=== PATIENT | female | born 2000 | race Caucasian/White ===

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

== ENCOUNTER 2024-05-19 10:42 | Outpatient (CLI) | payer BC, SELFPAY ==
--- NOTE | ~2024-05-19 | XR_ITS ---
EXAMINATION: XR hand LT min 3V DATE: 05/19/2024 11:08 INDICATION: Left first carpometacarpal joint injury. TECHNIQUE: 3 views of left hand were obtained. COMPARISON: Left wrist radiographs 11/04/2014 FINDINGS: Alignment is normal. No fracture. Joint spaces are normal. IMPRESSION: 1. No fracture. Reviewed, dictated and finalized at location A. NATING MACHINE FEEDER IMPRESSION: 1. No fracture.
== END 2024-05-19 10:43 | disposition home or self-care (01) ==
LOC: MICIMG 10:50
PROVIDERS: PCP Family Medicine; Visit Provider Chiropractor
DX: S62.202A Unspecified fracture of first metacarpal bone, left hand, initial encounter for closed fracture (principal); X58.XXXA Exposure to other specified factors, initial encounter
CPT/HCPCS: 73130

== ENCOUNTER 2024-09-14 09:51 | Outpatient (CLI) | payer BC, SELFPAY ==
--- NOTE | ~2024-09-14 | XR_ITS ---
Right Hand Technique: PA, oblique, and lateral views were obtained. Clinical History: Pain Findings: No acute fracture or dislocation is seen. Osseous alignment is anatomic. Joint spaces are p reserved. Soft tissues are unremarkable. Impression: Unremarkable right hand. Reviewed, dictated and finalized at location M. Impression: Unremarkable right hand.
== END 2024-09-14 09:52 | disposition home or self-care (01) ==
PROVIDERS: PCP Chiropractor; Visit Provider Chiropractor
DX: M79.641 Pain in right hand (principal)
CPT/HCPCS: 73130

== ENCOUNTER 2024-12-13 12:55 | Emergency (ER) | payer BC, SELFPAY ==
--- OUTSIDE RECORDS SUMMARY | 2022-03-16 07:31 | XMS_ITS | Continuity of Care Document ---
Author Organization [employer] [place] Address [address] [place] [address] [address] [place] [address] Phone Care Team Providers Care Travel Registered Nurse Icu Name Role Phone Omar SHIN CHT, Beth Unavailable Unavailable Procedures Procedure Date Progress Note Therapeutic Activities Neuromuscular Re-Ed Therapeutic Exercise Manual Therapy Therapeutic Exercise Neuromuscular Re-Ed Therapeutic Activities Neuromuscular Re-Ed Therapeutic Activities Manual Therapy Therapeutic Exercise Therapeutic Activities Neuromuscular Re-Ed Therapeutic Exercise Manual Therapy Therapeutic Activities Neuromuscular Re-Ed Therapeutic Exercise Manual Therapy PT Evaluation Moderate Complexity Therapeutic Activities Therapeutic Exercise Therapeutic Exercise Therapeutic Activities Therapeutic Exercise Neuromuscular Re-Ed Therapeutic Exercise Neuromuscular Re-Ed Therapeutic Exercise Therapeutic Activities Neuromuscular Re-Ed Therapeutic Exercise Therapeutic Activities Neuromuscular Re-Ed Therapeutic Exercise Therapeutic Activities Neuromuscular Re-Ed Therapeutic Exercise PT Evaluation Moderate Complexity Therapeutic Activities Neuromuscular Re-Ed OT Evaluation Low Complexity Therapeutic Exercise Advance Directives Directive Yes / No Effective Date File Name No Information Encounters Encounter Description Practice Location Reason(s) For Visit Diagnoses Date Provider Providers Copied on Encounter [address], [id number], tel:[phone] Julian No Information Dec-0 2 Omar Lorenzana [address] [facility], [address], [place], [place], [facility], . tel:[phone] [address], [place], [id number], tel:[phone] Julian No Information Nov0 2 Omar Lorenzana [address] [facility], [address], [place], [place], [facility], [place]. tel:[phone] [address], [place], [place], [id number], tel:[phone] Julian No Information 2 Omar Lorenzana [address] [facility], [address], [place], [place], [facility], [place]. tel:[phone] [address], [place], [place], [id number], [place] tel:[phone] Julian No Information Sep-2 2 Omar Lorenzana [address] [facility], [address], [place], [place], [facility], . tel:[phone] [address], [place], [place], [id number], tel:[phone] Julian No Information Sep-2 2 Omar Lorenzana [address] [facility], [address], [place], [address], [place]. tel:[phone] [facility] [address], [place], [place], [id number], [place] tel:[phone] Julian No Information Sep- 2 Omar Carter. [address] [facility], [address], [place], [address], [place]. tel:[phone] [facility] [address], [place], [place], [id number], [place] tel:[phone] Julian No Information Sep- 2 Keanu Gay. . [facility] [address], [place], [place], [address], [place] tel:[phone] [place] Pain in right wristMuscle weakness (generalized)Ot h symptoms and signs involving the musculoskeletal systemOther general symptoms and signsOther enthesopathies, not elsewhere classified 8 Terry Barrera. [address] [facility], [address], [place], [place], [facility], [place]. tel:[phone] [facility] [address], [place], [place], [id number], [place] tel:[phone] [place] Pain in right wristMuscle weakness (generalized)Ot h symptoms and signs involving the musculoskeletal systemOther general symptoms and signsOther enthesopathies, not elsewhere classified 0 8 Terry Barrera. [address] [facility], [address], [place], [address], [place]. tel:[phone] [facility] [address], [place], [place], [address], [place] tel:[phone] [place] Pain in right wristMuscle weakness (generalized)Ot h symptoms and signs involving the musculoskeletal systemOther general symptoms and signsOther enthesopathies, not elsewhere classified 3 0- 8 Terry Barrera. [address] [facility], [address], [place], [address], [place]. tel:[phone] [facility], [place], [place], [id number], [place] tel:[phone] [place] Sprain of unspecified ligament of right ankle, subs encntr 8 Zepeda Sunil. , [place], [place]. [facility], [place], [place], [id number], [place] tel:[phone] [place] Pain in right wristMuscle weakness (generalized)Ot h symptoms and signs involving the musculoskeletal systemOther general symptoms and signsOther enthesopathies, not elsewhere classified 8 Terry Barrera. [address] [facility], [address], [place], [place], [facility], [place]. tel:[phone] [facility], [place], [place], [id number], [place] tel:[phone] [place] Sprain of unspecified ligament of right ankle, subs encntr 8 Zepeda Sunil. , [place], [place]. [facility], [place], [place], [id number], [place] tel:[phone] [place] Pain in right wristMuscle weakness (generalized)Ot h symptoms and signs involving the musculoskeletal systemOther general symptoms and signsOther enthesopathies, not elsewhere classified 8 Terry Barrera. [address] [facility], [address], [place], [address], [place]. tel:[phone] [facility], [place], [place], [id number], [place] tel:[phone] [place] Sprain of unspecified ligament of right ankle, subs encntr 8 Zepeda Sunil. , [place], [place]. [facility], [place], [place], [address], [place] tel:[phone] [place] Pain in right wristMuscle weakness (generalized)Ot h symptoms and signs involving the musculoskeletal systemOther general symptoms and signsOther enthesopathies, not elsewhere classified 8 Terry Barrera. [address] [facility], [address], [place], [address], [place]. tel:[phone] Family History Family Member Type Diagnosis Age At Onset No Information Payers Payer name Insurance type Covered republican ID Authoriza tomeka(s) [facility] [place] [id number] Social History Type Description Quantity Date Captured Comments Sex Female Smoking Status No Information Chief Complaint And Reason For Visit No Information Reason For Referral Reason For Referral No Information History Of Present Illness Encounter Date Complaint History Of Prese nt Illness No Information Functional Status Date Functional Assessmen t No Information Instructions Date Instruction Additional Infor mation Dietary needs education Related to Overweight Prescribed activity/exercise edu cation Related to Overweight Assessments Type Assessment Date No Information Patient Care Teams Name Effective Dates (start - stop) Status Members No Information
--- OUTSIDE RECORDS SUMMARY | 2024-12-13 12:45 | XMS_ITS | Encounter Summary ---
Author Organization [facility] Healthcare Address [address] [place] [address] Care Team Providers Care Facilities Flight Check Pilot Name Role Phone Amanda Myles DO Primary Care Provider [phone] Carina Chaudhary MD Unavailable [phone] Josue Thornton DO Unavailable [phone] Silva Yao Unavailable [phone] Polina Angel NP Unavailable [phone] Reason for Visit * Reason Comments Eye Drainage L eye redness, blurr y and drainage started this AM. C/o eye hurts. Encounter Details Date Type Department Care Team (Late st Contact Info) Description 12/13/2024 12:45 PM CDT Office Visit [facility] [place] [id number] [place] [address] Teagan Otero NP [address] [facility] [address] [place] [address] Acute left eye pain (Primary Dx); Vision changes; Photophobia Social History Tobacco Use Types Packs/Day Years Used Date Smoking Tobacco: Never Smokeless Tobacco: Never Alcohol Use Standard Drinks/Week Comments Never 0 (1 standard drink = 0.6 oz pur e alcohol) PHQ-2 Answer Date Recorded PHQ-2 Total Score 0 11/02/2024 AUDIT-C Answer Date Recorded Q1: How often do you have a drink containing alcohol? Never 12/08/2024 Q2: How many drinks containi ng alcohol do you have on a typical day when you are drinking? Patient does not drink Q3: How often do you have si x or more drinks on one occasion? Never 12/08/2024 Personal Safety Answer Date Recorded Getting School Help Needed Denies 03/28 Comments No Sex and Gender Information Value Date Recorded Sex Assigned at Not on file Legal Sex Female 4:19 AM MANAGER WASTEWATER Gender Identity Female 03/25/2020 1:09 PM MANAGER WASTEWATER Sexual Orientation Straight 03/25/2020 1: 09 PM MANAGER WASTEWATER documented as of this encounter Last Filed Vital Signs Vital Sign Reading Time Taken Comments Blood Pressure 122/70 12/13/2024 12:32 PM CDT Pulse 104 12/13/2024 12:32 PM CDT Temperature 36.7 C (98.1 F) 12/13/2024 12:32 PM CDT Respiratory Rate 16 12/13/2024 12:32 PM CDT Oxygen Saturation 99% 12/13/2024 12:32 PM CDT Inhaled Oxygen Concentration - - Weight 77.1 kg (170 lb) 12/13/2024 12:32 PM CDT Height - - Body Mass Index 32.12 12/08/2024 10:01 AM CDT documented in this encounter Plan of Treatment Not on file documented as of this encounter Goals Goal Patient Goal Type Associated Problems Recent Progress Patient-Stated? Author CCM Chronic Pain Care Plan Chronic Care Management No Rosmery Vigil, RN Note: Problem: Chronic Pain Goals: 1. Minimize further functional decline 2. Maximize quality of life 3. Control pain Strategies: - Activity/exercise program recommendation - Conservative stepwise pain medicine strategy with multi-disciplinary approach - Recommend healthy lifestyle strategies and compensatory methods as needed documented as of this encounter Visit Diagnoses Diagnosis Acute left eye pain- Primary Vision changes Photophobia Visual discomfort documented in this encounter Care Teams Facilities Flight Check Pilot Relationship Specialty Start Date End Date Amanda Myles DO [address] [facility] [place] [address] PCP - General Family Medicine 11/16/19 Carina Chaudhary MD [address] [facility] [address] [place] [address] Surgeon Orthopedic Surgery 02/17/20 Josue Thornton DO [address] [place] [address] Referring Physician Internal Medicine 10/31/20 Silva Yao PA [address] [place] [address] Physician Customer Equipment Engineer Orthopedic Surgery 10/31/20 Polina Angel, JUNIOR [address] [facility] [address] HETAL Jackson [address] [address] Nurse Practitioner Obstetrics and Gynecology 09/03/22 documented as of this encounter"
--- OUTSIDE RECORDS SUMMARY | 2024-12-13 12:45 | XMS_ITS | Encounter Summary ---
Author Organization [facility] Healthcare Address [address] [place] [id number] Care Team Providers Care Tabulating Machine Mechanic Name Role Phone Amanda Myles DO Primary Care Provider + [phone] Carina Chaudhary MD Unavailable [phone] Josue Thornton DO Unavailable [phone] Silva Yao Unavailable [phone] Polina Angel NP Unavailable [phone] Reason for Visit * Reason Comments Eye Drainage L eye redness, blurr y and drainage started this AM. C/o eye hurts. Encounter Details Date Type Department Care Team (Late st Contact Info) Description 12/13/2024 12:45 PM CDT Office Visit [facility] [place] [id number] [place] [address] Teagan Otero NP [address] [facility] [address] [place] [address] Acute left eye pain (Primary [...] on file Legal Sex Female 4:19 AM PASTRY MIXER Gender Identity Female 03/25/2020 1:09 PM PASTRY MIXER Sexual Orientation Straight 03/25/2020 1: 09 PM PASTRY MIXER documented as of this encounter Last Filed [...] discomfort documented in this encounter Care Teams Tabulating Machine Mechanic Relationship Specialty Start Date End Date Amanda Myles DO [address] [facility] [place] [address] PCP - General Family Medicine 11/16/19 Carina Chaudhary MD [address] [facility] [address] [place] [address] Surgeon Orthopedic Surgery 02/17/20 Josue Thornton DO [address] [place] [address] Referring Physician Internal Medicine 10/31/20 Silva Yao PA [address] [place] [address] Physician Rock Wool Insulator Orthopedic Surgery 10/31/20 Polina Angel, JUNIOR [address] [facility] [address] [place] [address] [address] Nurse Practitioner Obstetrics and Gynecology 09/03/22 documented as of this encounter
--- OUTSIDE RECORDS SUMMARY | 2024-12-13 12:57 | XMS_ITS | Clinical Summary ---
Author Organization [facility] [employer] Address [address] [place] [address] Care Team Providers Care American Sign Language Interpreter Name Role Phone Amanda Myles DO Primary Care Provider [phone] Source Comments [facility],non-owned Affiliates and Associated Physician Practices is amultiple site organization consisting of ambulatory clinics and hospital sitesin [place], [place], [place] and [place]. This disclosure is being madepursuant to the Care Everywhere program and may not contain all information available regarding this patient. Last updated 18.[facility] [employer] Allergies Active Allergy Reactions Criticality Noted Date Comments Doxycycline Vomiting 12/05/2021 Medications * Be aware that medications may not be up to date on this document. Alwaysverify current medications with the patient. HYDROcodone-acet aminophen ([place]) 5-325 MG tablet Take 1 (one) tablet by mouth every 6 hours as needed for Pain 8 tablet 12/05/2021 Active Social History Tobacco Use Types Packs/Day Years Used Date Smoking Tobacco: Never Assessed AUDIT-C Answer Date Recorded Q1: How often do you have a drink containing alcohol? Never 12/05/2021 Q2: How many drinks containi ng alcohol do you have on a typical day when you are drinking? Patient does not drink Q3: How often do you have si x or more drinks on one occasion? 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 Gender Identity Not on file Sexual Orientation Not on file Last Filed Vital Signs Vital Sign Reading Time Taken Comments Blood Pressure 119/78 12/05/2021 5:52 PM CDT Pulse 99 12/05/2021 5:52 PM CDT Temperature 37.2 C (98.9 F) 12/05/2021 5:52 PM CDT Respiratory Rate 18 12/05/2021 5:52 PM CDT Oxygen Saturation 98% 12/05/2021 5:52 PM CDT Inhaled Oxygen Concentration - - Weight 68 kg (150 lb) 12/05/2021 5:52 PM CDT Height 154.9 cm (5' 1) 12/05/2021 5:52 PM CDT Body Mass Index 28.34 12/05/2021 5:52 PM CDT Plan of Treatment Health Maintenance Due Date Last Done Comments HIV SCREENING 2017 HPV VACCINE (1 - 3-dose series) 2017 CHLAMYDIA/GONORRHEA SCREENING 2018 MENINGOCOCCAL (Group B) VACCINE SHARED DECISION-MAKING (1 of 2 - Standard) 2018 HEPATITIS C SCREENING 08/05/2020 DTAP/TDAP/TD VACCINES (1 - Tdap) 2021 HEPATITIS B VACCINE (1 of 3 - 19+ 3-dose series) 2021 COVID-19 VACCINE (4 - season) 2023 03/30/2021, 07/18/2020, 06/27/2020 DEPRESSION SCREENING 04/15/2024 INFLUENZA VACCINE (#1) 2024 , 03/28/2021, 02/17/2020, Additional history exists ZOSTER VACCINE (1 of 2) 2052 HIB VACCINE Aged Out No longer eligi ble based on patient's age to complete this topic MENINGOCOCCAL GROUPS A/C/Y/W VACCINE Aged Out No longer eligible based on patient's age to complete this topic PNEUMOCOCCAL VACCINE Aged Out No long er eligible based on patient's age to complete this topic Insurance [employer]AT LIABILITY Democrat Liability ANTHEM Care Teams American Sign Language Interpreter Relationship Specialty Start Date End Date Amanda Myles DO [address] [place] [address] [address] [place] [address] PCP - General Family Medicine 12/05/21
--- OUTSIDE RECORDS SUMMARY | 2024-12-13 12:57 | XMS_ITS | Clinical Summary ---
Author Organization [address] [facility] Address [address] [place] [address] Care Team Providers Care Medical Coding Technician Name Role Phone Shar Amanda Mcqueen DO Primary Care Provider [phone] Carina Chaudhary MD Unavailable Josue Thornton DO Unavailable Silva Yao Unavailable [phone] Polina Angel NP Unavailable [phone] Allergies Active Allergy Reactions Criticality Noted Date Comments Adhesive Rash High 02/17/2020 Doxycycline Nausea & Vomiting Low 03/10/2021 Medications etonogestreL (NEXPLANON) 68 mg implantIndicatio ns: Contraception 1 each (68 mg total) Paid by Insurance Lot # [id number] Exp. Date 03-02-23 Inserted 04-12-21 Active cetirizine (ZyrTEC) 10 mg tabletIndication s:Non-seasonal allergic rhinitis, unspecified trigger Take 1 tablet (10 mg total) by mouth daily as needed for allergies 90 tablet 1 025 2025 Active escitalopram (LEXAPRO) 20 mg tabletIndication s:Generalized Anxiety Disorder Take 1 tablet (20 mg total) by mouth daily 90 tablet 1 05/152025 Active fluticasone propionate (FLONASE) 50 mcg/actuation nasal sprayIndications :Non-seasonal allergic rhinitis, unspecified trigger Administer 2 sprays into each nostril daily 1 each 1 Active zolpidem (AMBIEN) 5 mg tabletIndication s:Sleep-Onset Insomnia Take 1 tablet (5 mg total) by mouth nightly as needed for sleep 30 tablet 5 2025 Active thyroid (RN BIRTHING Thyroid) 90 mg tabletIndication s:Max's thyroiditis Take 1 tablet (90 mg total) by mouth daily before breakfast 90 tablet 1 2025 Active moxifloxacin (VIGAMOX) 0.5 % ophthalmic solution INSTILL 1 DROP INTO RIGHT EYE TWICE DAILY Active hydrocortisone (ANUSOL-HC) 25 mg suppositoryIndic ations:Bright red rectal bleeding Insert 1 suppository (25 mg total) into the rectum 2 (two) times a day as needed for hemorrhoids 12 suppository Active al & mag hydroxide simethicone-diph enhydramine-lido ashish-nystatin (MAGIC MOUTHWASH) suspension 5-8-4-1Indicatio ns:Aphthous ulcer of mouth Swish and spit 5 mL every 4 (four) hours as needed (oral thrush) 120 mL Active Additional Information Patient not taking.Reported on 12/13/2024 benzonatate (TESSALON) 200 mg capsuleIndicatio ns:Acute cough Take 1 capsule (200 mg total) by mouth 3 (three) times a day as needed for cough keep tessalon out of reach of children, especially children under the age of 10, due to possible serious risk such as if ingested by children under the age of 10. 30 capsule Active Additional Information Patient not taking.Reported on 12/13/2024 dextroamphetamin e-amphetamine XR (ADDERALL XR) 20 mg 24 hr capsuleIndicatio ns:Attention-Def icit Hyperactivity Disorder Take 1 capsule (20 mg total) by mouth every morning 30 capsule Active semaglutide (Wegovy) 0.25 mg/0.5 mL auto-injectorInd ications:Weight Loss Management for Obese Patient (BMI >= 30) Inject 0.25 mg under the skin every 7 days for 28 days 2 mL 025 2024 Active ondansetron (ZOFRAN) 4 mg tablet Take 1 tablet (4 mg total) by mouth every 8 (eight) hours as needed for nausea or vomiting 20 tablet Active dextroamphetamin e-amphetamine XR (ADDERALL XR) 20 mg 24 hr capsuleIndicatio ns:Attention-Def icit Hyperactivity Disorder Take 1 capsule (20 mg total) by mouth every morning 30 capsule 025 2024 Discontinued(R eorder) valACYclovir (VALTREX) 1 gram tablet TAKE 1 TABLET BY MOUTH THREE TIMES DAILY FOR 7 DAYS 025 2024 Discontinued amoxicillin-clav ulanate (AUGMENTIN) 875-125 mg per tabletIndication s:Acute suppurative otitis media of right ear without spontaneous rupture of tympanic membrane, recurrence not specified,Acute pansinusitis, recurrence not specified Take 1 tablet by mouth 2 (two) times a day for 7 days 14 tablet 025 2024 Active Problems Problem Noted Date Diagnosed Date Acute costochondritis 12/04/2024 Bronchitis 12/04/2024 Rib pain on right side 12/04/2024 Sensation of fullness in ear 12/04/2024 Non-seasonal allergic rhinitis 07/13/2024 Sleep disturbance 06/03/2024 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 Continue [place] thyroid. Assessment & Plan (09/28/2022 2:46 PM CDT): Diagnosed around 2018 Patient is clinically euthyroid TSH was low at 0.13 on 09/03/22 [place] thyroid was decreased from 120 to 90 mg/day Plan: Continue same dose of [place] thyroid Check TSH in 6 weeks I will adjust the dose based on lab results. Bright red rectal bleeding 03/07/2022 Overview (03/07/2022): Added automatically from request for surgery [id number] Assessment & Plan (11/09/2024 8:50 AM CDT): Suspect hemorrhoids, referred to Gastroenterology for possible screening colonoscopy. Constipation 01/17/2022 Assessment & Plan (02/13/2022 3:59 PM CDT): Strongly recommended patient try MiraLax rather than only the magnesium. Patient instructed to start her their early until it clears and then drink immediately. The MiraLax only taking up if the left to rest for a while. May also add Colace, which is also [id number]. Please follow instructions on the packaging. Keep scheduled appointment with gastroenterology. Assessment & Plan (01/18/2022 2:38 AM CDT): Ann Price is a 21 y.o. female with PMH chronic constipation, RAMBO, ADHD, Max thyroiditis, and chronic regional pain syndrome who presented with bloody stools in the setting of constipation and was admitted for cleanout. Pt has a history of chronic constipation and has rectal pain when wiping and stooling. Given bright red blood observed by pt, lower GI cause is most likely. Differential diagnosis includes: anal fissures, hemorrhoids, and diverticulosis, which are all associated with chronic constipation. Given two months of intermittent bleeding without evidence of anemia, less concern for large volume or acute bleeding. Pt has mild RLQ tenderness consistent with diverticulitis or increased stool burden. Less concern for acute causes such as appendicitis. Overall, pt is stable without evidence of anemia. She was admitted for bowel clean-out and can follow-up outpatient with GI for colonoscopy if she continues to have bloody stools. Plan: - Miralax q2h PO - Clear liquid diet - KUB when clear - GI consult - D5NS KCl - Zofran PRN - Education on diet, exercise, chronic constipation - Discharge with bowel regimen of daily Miralax and Senna (or per GI recs) Generalized anxiety disorder 09/05/2021 Assessment & Plan (12/19/2023 9:29 AM CDT): Clinically improved, continue current prescription medications. Assessment & Plan (03/29/2023 12:34 PM SPECIAL SYSTEMS TECHNICIAN): Clinically improved, continue current prescription medications, escitalopram. Assessment & Plan (09/03/2022 3:54 PM CDT): Clinically improved, continue current prescription medications, Lexapro. Assessment & Plan (03/31/2022 10:00 PM SPECIAL SYSTEMS TECHNICIAN): Stable. Cont. Current prescription medications. Assessment & Plan (09/05/2021 11:11 AM CDT): New start on Lexapro. Referred to psychiatry for further evaluation and management. Attention deficit hyperactivity disorder (ADHD) 10/31/2020 Assessment & Plan (11/09/2024 8:49 AM CDT): Stable. Cont. Current prescription medications, Adderall XR. Assessment & Plan (04/13/2024 11:15 AM SPECIAL SYSTEMS TECHNICIAN): Clinically improved, decreased Adderall 10 mg b.i.d. down to 10 mg daily. Assessment & Plan (12/19/2023 9:29 AM CDT): Stable. Cont. Current prescription medications. Assessment & Plan (03/29/2023 12:34 PM SPECIAL SYSTEMS TECHNICIAN): Stable. Cont. Current prescription medications, Adderall. Assessment & Plan (09/03/2022 3:54 PM CDT): Stable. Cont. Current prescription medications, Adderall. Assessment & Plan (03/31/2022 10:00 PM SPECIAL SYSTEMS TECHNICIAN): Increase Adderall XR 15 mg every day to adderall 10 mg bid. Will follow. Assessment & Plan (10/08/2021 1:25 PM CDT): Rx re-sent to new pharmacy. Notify our office if there is a problem with pick- up. Assessment & Plan (09/05/2021 11:11 AM CDT): Increased Adderall XR from 10 mg daily up to 15 mg daily. Patient has been referred to psychiatry for further evaluation and management. Assessment & Plan (06/22/2021 9:26 AM SPECIAL SYSTEMS TECHNICIAN): Clinically improved, continue current prescription medications. Assessment & Plan (04/04/2021 4:30 PM SPECIAL SYSTEMS TECHNICIAN): Worsening. Increase Adderall XR 5 mg once daily up to 10 mg once daily. Will follow. Assessment & Plan (10/31/2020 8:26 AM CDT): Stable. Cont. Current meds. Chronic pain of right ankle 10/31/2020 Simple renal cyst 04/04/2020 Class 1 obesity without seri ous comorbidity with body mass index (BMI) of 33.0 to 33.9 in adult 02/17/2020 Assessment & Plan (12/08/2024 10:25 AM CDT): Chronic. Uncontrolled. Goal: 125lb Recommend Nutritional every other Saturday Seminar. Recommended Medication : Start Wegovy. If wegovy not covered, start phentermine 15mg at low dosage. Assessment & Plan (11/09/2024 8:49 AM CDT): Patient is struggling with her weight, she would like a referral to weight management. Referral placed. Nonintractable episodic headache 02/17/2020 Chronic nausea 02/17/2020 Assessment & Plan (11/09/2024 8:52 AM CDT): Referred to Gastroenterology for further evaluation and management and possible EGD. Assessment & Plan (02/17/2020 12:15 PM SPECIAL SYSTEMS TECHNICIAN): Encouraged patient to use MiraLax on a consistent basis to help have normal bowel movements. Her constipation may be contributing to her nausea prescription given will follow. Intracranial hemorrhage foll owing injury without open intracranial wound and with concussion, without LOC, subsequent encounter 07/27/2016 Arachnoid cyst 05/21/2016 Resolved Problems Problem Noted Date Diagnosed Date Resolved Date Cellulitis of left lower extremity 01/23/2024 07/13/2024 Assessment & Plan (01/23/2024 8:32 AM CDT): Trial of oral antibiotics. Notify our office of no improvement. Seasonal allergic rhinitis due to pollen 09/13/2023 08/28/2024 Assessment & Plan (09/13/2023 11:54 AM CDT): Flonase 2 sprays into each nostril while looking down over the sink, do not sniff in or blow nose after use for at least 30 minutes daily Max's thyroiditis 09/03/2022 05/0 10/2024 Assessment & Plan (12/19/2023 9:29 AM CDT): Asymptomatic. Stable. Continue current prescription medications. Assessment & Plan (09/03/2022 4:00 PM CDT): Asymptomatic. Stable. Continue current prescription medications, RN BIRTHING Thyroid. Referred to Endocrinology for further eval/mgmt. Rash 09/03/2022 03/29/2023 Assessment & Plan (09/03/2022 4:00 PM CDT): Referred to dermatology for further eval/mgmt. Abdominal pain, generalized 03/07/2022 09/03/2022 Overview (03/07/2022): Added automatically from request for surgery [id number] Inversion sprain of right ankle 06/20/2020 10/31/2020 Assessment & Plan (06/20/2020 9:32 AM SPECIAL SYSTEMS TECHNICIAN): Managed by Orthopedics. In right ankle boot. Has upcoming appointment with neurology for an apparent footdrop of the right foot. Abdominal bloating 03/25/2020 Flu vaccine need 02/17/2020 06/20/2020 Abnormal weight gain 02/17/2020 03 021 Assessment & Plan (02/17/2020 12:16 PM SPECIAL SYSTEMS TECHNICIAN): Chronic constipation and use of control may be contributing. Continue to modify diet and participate in daily exercise. Abdominal pain, generalized 02/17/2020 06/20/2020 Assessment & Plan (02/17/2020 12:15 PM SPECIAL SYSTEMS TECHNICIAN): Chronic, most likely secondary to constipation. However patient also has problems with her menstrual period. She has been tried on oral contraceptive pills in the past, however did not work for her due to forgetfulness of bowel when she needed to take her pill. She currently has next planning on. Will refer her to gynecology for further evaluation of her abnormal periods. Abnormal menses 02/17/2020 06/20/2020 Assessment & Plan (02/17/2020 12:16 PM SPECIAL SYSTEMS TECHNICIAN): Referred to employee relations manager for further evaluation and management. Constipation 02/17/2020 06/20/2020 Assessment & Plan (02/17/2020 12:16 PM SPECIAL SYSTEMS TECHNICIAN): Trial of MiraLax. If no improvement consider referral to farmworkers. Encounters Date Type Department Care Team Description 12/13/2024 12:45 PM CDT Office Visit [facility] Care at [address] [phone] Teagan Otero NP Acute left eye pain (Primary Dx); Vision changes; Photophobia 12/08/2024 10:00 AM CDT Office Visit [facility] at [address] [phone] Acosta Guthrie MD Class 1 obesity due to excess calories without serious comorbidity with body mass index (BMI) of 33.0 to 33.9 in adult (Primary Dx) 12/08/2024 Telephone [facility] at [address] [phone] Acosta uGthrie MD PA for wegovy 12/04/2024 10:15 AM CDT Office Visit [facility] Care at [address] [phone] Modesta Zaidi, JUNIOR Non-recurrent acute serous otitis media of right ear (Primary Dx); Episodic cluster headache, not intractable 11/25/2024 9:00 AM CDT Office Visit [facility] Care at [address] [phone] Audrey Stokes, JUNIOR Acute suppurative otitis media of right ear without spontaneous rupture of tympanic membrane, recurrence not specified (Primary Dx); Acute pansinusitis, recurrence not specified; Acute cough 11/24/2024 Results Follow-Up [facility] at [facility] [address] [facility] [address] [place] [address] Amanda Myles DO Throat culture Throat 11/23/2024 4:33 PM CDT - 11/23/2024 11:59 PM CDT Hospital Encounter [facility] [address] [place] [address] Sore throat Discharge Disposition: Discharge to home or self care 11/23/2024 2:30 PM CDT Office Visit [facility] at [facility] [address] [facility] [address] [place] [address] Amanda Myles DO Acute cough (Primary Dx); Sore throat; Aphthous ulcer of mouth; Non-seasonal allergic rhinitis, unspecified trigger 11/04/2024 Telephone [facility] at [place] [address] [facility] [address] [place] [address] Acosta Guthrie MD 11/02/2024 3:45 PM CDT Office Visit [facility] at [facility] [address] [facility] [address] [place] [address] Amanda Myles DO Attention deficit hyperactivity disorder (ADHD), unspecified ADHD type (Primary Dx); Chronic nausea; Bright red rectal bleeding; Class 1 obesity due to excess calories without serious comorbidity with body mass index (BMI) of 32.0 to 32.9 in adult 09/14/2024 11:30 AM CDT Office Visit [facility] at [address] [phone] Modesta Zaidi, JUNIOR Hand injury, right, initial encounter (Primary Dx) from Last 3 Months Immunizations Immunization Administration Dates Next Due DTP 11/18/2018 DTaP 08/07/2013, 4,03/02/2003,12/17 DTaP / IPV 2002 DTaP 5 Pertussis 08/07/2013, 4,02/21/2003,12/17,2002 HPV, Quadrivalent 11/18/2017 HPV, Unspecified 11/18/2017,01/10/2016, 6 HPV9 11/21/2015 Hep B, Unspecified 2002,2002, 003 HiB 08/16/2003, 3,2002,08/10 Hib (PRP-OMP) 2002 IPV 11/18/2017, 4,2002,10/22 Influenza, Quadrivalent, Stacy l Culture-based MDCK, Antibiotic Free, Intramuscular 02/24/2018 Influenza, Quadrivalent, Rec ombinant, Egg Free, Preservative Free, Intramuscular 03/30/2021 Influenza, Quadrivalent, Spl it, Preservative Free, Intramuscular 03/29/2023,01/18/2022,02/17/2020 Influenza, Trivalent, IM (MDV) 02/24/2018 Influenza, Trivalent, Preser vative Free, Intramuscular 04/16/2024 Influenza, Unspecified 04/13/2024(Deferr ed: Patient Refused),01/13/2023,03/30/2022(Deferre d: Patient Refused),03/28/2021,03/28/2021, 020 MMR 08/14/2007,11/19/2003 Meningococcal ACWY, Unspecified 10/26/2019,08/07 Meningococcal MCV4P (Menactra) 08/07/2013 Meningococcal Polysaccharide (Menomune) 08/07/2013 Pfizer SARS-CoV-2 Monovalent Vaccination (12+ Yrs) PURPLE 03/30/2021,07/18/2020,06/27/2020 Tdap 11/18/2017,06/25/2013,2002 Varicella 10/25/2013,08/16/2003 Surgical History Surgery Date Site/Laterality Comments TONSILLECTOMY WISDOM TOOTH EXTRACTION Medical History Medical History Date Comments Hx of tonsillectomy ADHD (attention deficit hyperactivity disorder) Menstrual problem Joint pain Max's thyroiditis CRPS (complex regional pain syndrome type I) Leg pain Ankle pain Anxiety Headache CRPS (complex regional pain syndrome type I) Ovarian cyst Kidney cysts Subarachnoid cyst Family History Medical History Relation Name Comments Heart attack Father's Brother kajal at age 49 Hypertension Maternal Grandfather jason Hypertension Maternal Grandmother shelva Lupus Maternal Grandmother shelva Stroke Maternal Grandmother shelva Thyroid disease Maternal Grandmother shelva Max's thyroiditis Mother Psoriasis Mother Arthritis Other 1 Family history of Arthritis; Cancer Other 2 Family history of Cancer, unknown; Heart disease Other 3 Family history of Heart disease; Mental illness Other 4 Family histor y of Mental illness; Hypertension Other 5 Family history of Hypertension; Stroke Other 6 Family history of Stroke; Anxiety disorder Sister lalo Asthma Sister lalo Depression Sister lalo Relation Name Status Comments Father's Brother kajal Maternal Grandfather jason Maternal Grandmother shelva Mother Other 1 Other 2 Other 3 Other 4 Other 5 Other 6 Sister lalo Social History Tobacco Use Types Packs/Day Years [...] on file Legal Sex Female 4:19 AM SPECIAL SYSTEMS TECHNICIAN Gender Identity Female 03/25/2020 1:09 PM SPECIAL SYSTEMS TECHNICIAN Sexual Orientation Straight 03/25/2020 1: 09 PM SPECIAL SYSTEMS TECHNICIAN Obstetrics History Para Term AB IAB SAB Ectopic Multiple Livin g Live Births 0 0 0 0 0 0 0 0 0 0 0 Last Filed Vital Signs Vital Sign Reading Time Taken Comments Blood Pressure 122/70 12/13/2024 12:32 PM CDT Pulse 104 12/13/2024 12:32 PM CDT Temperature 36.7 C (98.1 F) 12/13/2024 12:32 PM CDT Respiratory Rate 16 12/13/2024 12:32 PM CDT Oxygen Saturation 99% 12/13/2024 12:32 PM CDT Inhaled Oxygen Concentration - - Weight 77.1 kg (170 lb) 12/13/2024 12:32 PM CDT Height 154.9 cm (5' 1) 12/08/2024 10:01 AM CDT Body Mass Index 32.12 12/08/2024 10:01 AM CDT Plan of Treatment Health Maintenance Due Date Last Done Comments Chlamydia and Gonorrhea (GC/CT) Screening 11/03/2022 11/03/2021, 11/03/2021, 11/03/2021, Additional history exists Influenza Vaccine (#1) 2024 , 03/29/2023, 01/13/2023, Additional history exists Cervical Cancer Screening 01/22/2025 Po stponed from 2002 (Patient declined, but will receive in the future) Regular Well Visit/Exam 18-64 04/13/2025 04/13/2024, 06/22/2021 Pneumococcal vaccine <65 (1 of 2 - PCV) 09/27/2025 Postponed from 2021 (Patient declined, but will receive in the future) Depression Screening 11/02/2025 11/02/2024, 12/19/2023, 03/29/2023, Additional history exists DTaP/Tdap/Td Vaccine (10 - Td or Tdap) 11/18/2028 11/18/2018, 11/18/2017, 08/07/2013, Additional history exists Varicella Vaccines Completed 10/25/2013, 08/16/2003 HPV Vaccines Completed 11/18/2017, 0809/2017, 01/10/2016, Additional history exists Covid-19 Vaccine Discontinued 03/30/2021, 08/2020, 06/27/2020 Hepatitis B Screening Completed 04/13/2024 , 2002, 2002, Additional history exists Hepatitis C Screening Completed 04/13/2024 Meningococcal B Vaccine Discontinued Goals Goal Patient Goal Type Associated Problems [...] lifestyle strategies and compensatory methods as needed Procedures Procedure Name Priority Date/Time Associated Diagnosis Comments POC INFLUENZA A/B, COVID-19 ANTIGEN Routine 11/23/2024 2:46 PM CDT Acute cough Sore throat POCT RAPID STREP Routine 11/23/2024 2:39 PM CDT Acute cough Sore throat THROAT CULTURE Routine 11/23/2024 2:39 PM CDT Sore throat HEPATITIS C ANTIBODY Routine 04/13/2024 11:13 AM SPECIAL SYSTEMS TECHNICIAN Need for hepatitis C screening test HM CHLAMYDIA AND GONORRHEA Routine 11/03/2021 from Last 3 Months or Most Recently Relevant to Health Maintenance Results * POC Influenza A/B, COVID-19 antigen (11/23/2024 2:46 PM CDT) Influenza A Ag, POC Negative Negative [facility] Influenza B Ag, POC Negative Negative [facility] COVID-19 Ag POC Presumptive Negative Presumptive Negative, Invalid [facility] Nasal 11/23/2024 2:46 PM CDT Amanda Myles DO POINT OF CARE TEST ORDERAB LES Final Result [facility] [id number] [facility] [address] [place] [address] * POCT rapid strep A (11/23/2024 2:39 PM CDT) [facility] Rapid Strep A, POC Negative Negative Swab 11/23/2024 2:39 PM CDT us Amanda Myles DO POINT OF CARE TEST ORDERAB LES Final Result * Throat culture Throat (11/23/2024 2:39 PM CDT) Pathologist [facility] Report Final Report: No growth of pathogens. Comment:Testing performed by : [facility], [address] [facility] [place] [address] Throat 11/23/2024 2:39 PM CDT 11/23/2024 8:31 PM CDT Narrative BECCA - 11/24/2024 4:02 PM CDT Testing performed by [facility] Microbiology Laboratory ([phone]). us Amanda Myles DO LAB MICROBIOLOGY - GENERAL ORDERABLES Final Result Performing Organization Address City/[facility] Co de Phone Number BECCA [address] [facility] Department [place] [address] * Hepatitis C antibody Blood (04/13/2024 11:13 AM SPECIAL SYSTEMS TECHNICIAN) [facility] Hep C Ab Nonreactive Nonreactive Comment: Antibodies to HCV not detected. Does NOT exclude the possibility of recent exposure to HCV. Current interpretive data was last revised on 21 Interpretive Data Nonreactive: Antibodies to HCV not detected. Does NOT exclude the possibility of recent exposure to HCV. Equivocal: Equivocal for HCV antibodies. Supplemental molecular testing will be automatically performed to determine infection status in accordance with current CDC screening recommendations. Reactive: Positive for HCV antibodies. This may represent current or past HCV infection. Supplemental molecular testing will be automatically performed to determine current infection status in accordance with current CDC screening recommendations. Interpretive data was last revised on 2019. Blood 04/13/2024 11:1 3 AM SPECIAL SYSTEMS TECHNICIAN 04/13/2024 11:35 AM SPECIAL SYSTEMS TECHNICIAN Amanda Myles DO LAB MICROBIOLOGY - GENERAL ORDERABLES Final Result [facility] [address] [facility] Department [place] [address] * CHLAMYDIA AND GONORRHEA (11/03/2021) SCRIBED GC/Chlamydia Urine Normal Historical Provider MD HEALTH MAINTENANCE Final Result from Last 3 Months or Most Recently Relevant to Health Maintenance Insurance [employer] Member Subscriber Plan / Payer (Ef fective 2018-Present) Name:Ann Price Kristel Relation to Subscriber:Child Name:JULIETA PRICE Date of :1967 (Home) Address: [address] [place] [phone] Payer ID:[id number] (NAIC) Type:[facility] Address: [address] ACCESS SPECIAL CONTRACTS PAYOR RAJ WIGGINS [id number] ANTHEM ACCESS Advance Directives For more information, please contact: [phone] Documents on File Type Date Recorded Patient Guide Cruise Expl anation Advance Directives and Livin g Will 03/19/2022 1:14 PM * Full Code (Latest Code Status on File) Date Activated Date Inactivated Comments 01/17/2022 11:29 PM 01/18/2022 5:46 PM Care Teams Medical Coding Technician Relationship Specialty Start Date End Date Eva Mylese DO [place] [address] [place] [address] PCP - General Family Medicine 11/16/19 Carina Chaudhary MD [address] [place] [address] Surgeon Orthopedic Surgery 02/17/20 Josue Thornton DO [address] [place] [address] Referring Physician Internal Medicine 10/31/20 Silva Yao PA [address] [place] [address] Physician Sales Manager Orthopedic Surgery 10/31/20 Polina Angel, RN BIRTHING [address] [place] [place] [address] [address] Nurse Practitioner Obstetrics and Gynecology 09/03/22
--- OUTSIDE RECORDS SUMMARY | 2024-12-13 12:57 | XMS_ITS | Encounter Summary ---
Author Organization [facility] Healthcare Address [address] [place] [address] Care Team Providers Care Child Welfare Worker Name Role Phone Amanda Myles DO Primary Care Provider [phone] Carina Chaudhary MD Unavailable Khurram Soria MD Unavailable [phone] Josue Thornton DO Unavailable Silva Yao Unavailable [phone] Rosemarie Cuenca MA Unavailable [phone] Polina Angel NP Unavailable [phone] Reason for Visit * Reason Onset Date Comments Med Refill 11/18/2020 Encounter Details Date Type Department Care Team (Late st Contact Info) Description 11/18/2020 Telephone [facility] [address] [facility] [address] [place] [address] Deidra Portillo MD [address] [place], [place] [id number] Med Refill Social History Tobacco Use Types Packs/Day Years Used Date Smoking Tobacco: Never Smokeless Tobacco: Never Alcohol Use Standard Drinks/Week Comments No 0 (1 standard drink = 0.6 oz pur e alcohol) AUDIT-C Answer Date Recorded Q1: How often do you have a drink containing alc ohol? Never 11/17/2020 Average Number of Drinks Not on file 021 Frequency of Binge Drinking Not on file 08/2020 PHQ-2 Answer Date Recorded PHQ-2 Total Score (If total score is 3 or more points, staff should administer the PHQ-9) 0 11/01/2020 Comments No Sex and Gender Information Value Date Recorded Sex Assigned at Not on file Legal Sex Female 4:19 AM ELIGIBILITY TECHNICIAN Gender Identity Female 03/25/2020 1:09 PM ELIGIBILITY TECHNICIAN Sexual Orientation Straight 03/25/2020 1: 09 PM ELIGIBILITY TECHNICIAN documented as of this encounter Plan of Treatment Not on [...] documented as of this encounter Visit Diagnoses Not on filedocumented in this encounter Additional Health Concerns Infection Onset Date Last Indicated Resolved Time COVID: Suspected 03/10/2021 03/10/2021 03/10/2021 9:42 AM ELIGIBILITY TECHNICIAN Influenza, adult 03/10/2021 03/10/2021 03/17/2021 3:05 AM ELIGIBILITY TECHNICIAN COVID: Suspected 10/18/2021 10/18/2021 10/18/2021 4:25 PM CDT COVID19 10/18/2021 10/18/2021 10/28/2021 3:05 AM CDT COVID: Recovered Comment:Added based on recent COVID infection. 10/28/2021 11/03/2021 02/25/2022 3:[address] COVID: Suspected 01/03/2022 01/03/2022 01/03/2022 8:41 PM CDT COVID: Suspected 05/02/2022 05/02/2022 05/02/2022 2:16 PM ELIGIBILITY TECHNICIAN Exposure, COVID-19 Comment:Added automatically based on COVID19 lab answers indicating exposure risk 06/26/2023 06/26/2023 07/06/2023 3:05 AM C DT COVID: Suspected 06/26/2023 06/26/2023 06/26/2023 8:23 PM CDT COVID: Suspected 07/17/2023 07/17/2023 07/17/2023 10:01 AM CDT COVID: Suspected 07/17/2023 07/17/2023 07/17/2023 3:31 PM CDT Exposure, COVID-19 Comment:Added automatically based on COVID19 lab answers indicating exposure risk 07/31/2023 07/31/2023 2023 3:05 AM C DT COVID: Suspected 07/31/2023 07/31/2023 07/31/2023 12:21 PM CDT COVID: Suspected 07/31/2023 07/31/2023 07/31/2023 4:06 PM CDT COVID: Suspected 04/13/2024 04/13/2024 04/14/2024 3:05 AM ELIGIBILITY TECHNICIAN COVID: Suspected 11/23/2024 11/23/2024 11/23/2024 2:47 PM CDT documented as of this encounter Care Teams Child Welfare Worker Relationship Specialty Start Date End Date Amanda Myles DO [address] [facility] [address] [place] [address] PCP - General Family Medicine 11/16/19 Carina Chaudhary MD [address] [facility] [facility] [address] [place] [address] Surgeon Orthopedic Surgery 02/17/20 Khurram Soria MD [address] [address] Referring Physician Obstetrics and Gynecology 02/17/20 09/02/22 Josue Thornton DO [address] [place] [address] Referring Physician Internal Medicine 10/31/20 Silva Yao PA [address] [place] [address] Physician Greenhouse Laborer Orthopedic Surgery 10/31/20 Rosemarie Cuenca, SHAKIRA [address] [place] [address] [address] [place] [address] ACO Care Nanosystems Engineer 05/03/22 05/06/22 Polina Angel NP [address] [facility] [address] Jackson [address] [address] Nurse Practitioner Obstetrics and Gynecology 09/03/22 documented as of this encounter
--- OUTSIDE RECORDS SUMMARY | 2024-12-13 12:57 | XMS_ITS | Encounter Summary ---
Author Organization [facility] Address [address] [place] [address] Care Team Providers Care Design Center Consultant Name Role Phone Amanda Myles DO Primary Care Provider [phone]- [phone] Carina Chaudhary MD Unavailable Khurram Soria MD Unavailable [phone] Josue Thornton DO Unavailable [phone] Silva Yao Unavailable [phone] Rosemarie Cuenca MA Unavailable [phone] Polina Angel NP Unavailable [phone] Encounter Details Date Type Department Care Team (Late st [facility]) Description 03/28/2020 Telephone [facility] [place] [facility] [address] [place] [id number] Brandie Cooper, [place]LTON Social History Tobacco Use Types Packs/Day Years Used Date Smoking Tobacco: Never Smokeless Tobacco: Never Alcohol Use Standard Drinks/Week Comments No 0 (1 standard drink = 0.6 oz pur e alcohol) PHQ-2 Answer Date Recorded PHQ-2 Total Score (If total score is 3 or more points, staff should administer the PHQ-9) 0 02/17/2020 Comments No Sex and Gender Information Value Date Recorded Sex Assigned at Not on file Legal Sex Female 4:19 AM GENERAL DOC Gender Identity Female 03/25/2020 1:09 PM GENERAL DOC Sexual Orientation Straight 03/25/2020 1: 09 PM GENERAL DOC documented as of this encounter Plan of Treatment Not on file documented as of this encounter Visit Diagnoses Not on filedocumented in this encounter Additional Health Concerns Infection Onset Date Last Indicated Resolved Time COVID: Suspected 03/10/2021 03/10/2021 03/10/2021 9:42 AM GENERAL DOC Influenza, adult 03/10/2021 03/10/2021 03/17/2021 3:05 AM GENERAL DOC COVID: Suspected 10/18/2021 10/18/2021 10/18/2021 4:25 PM CDT COVID19 10/18/2021 10/18/2021 10/28/2021 3:05 AM CDT COVID: Recovered Comment:Added based on recent COVID infection. 10/28/2021 11/03/2021 02/25/2022 3:[address] COVID: Suspected 01/03/2022 01/03/2022 01/03/2022 8:41 PM CDT COVID: Suspected 05/02/2022 05/02/2022 05/02/2022 2:16 PM GENERAL DOC Exposure, COVID-19 Comment:Added automatically based on COVID19 [...] COVID: Suspected 04/13/2024 04/13/2024 04/14/2024 3:05 AM GENERAL DOC COVID: Suspected 11/23/2024 11/23/2024 11/23/2024 2:47 PM CDT documented as of this encounter Care Teams Design Center Consultant Relationship Specialty Start Date End Date Shar Amanda McqueenDO [address] [facility] [address] [place] [address] PCP - General Family Medicine 11/16/19 Carina Chaudhary MD [address] [facility] [address] [place] [address] Surgeon Orthopedic Surgery 02/17/20 Khurram Soria MD [address] [facility] [address] [place], [place] [id number] Referring Physician Obstetrics and Gynecology 02/17/20 09/02/22 Josue Thornton DO [address] [place] [address] Referring Physician Internal Medicine 10/31/20 Silva Yao PA [address] [place] [address] Physician Rolling Mill Operator Helper Orthopedic Surgery 10/31/20 Rosemarie Cuenca MA [address] [place] [address] [address] [place] [address] ACO Care Crozer 05/03/22 05/06/22 Polina Angel, JUNIOR [address] [facility] [address] Jackson [address] [address] Nurse Practitioner Obstetrics and Gynecology 09/03/22 documented as of this encounter
--- OUTSIDE RECORDS SUMMARY | 2024-12-13 12:57 | XMS_ITS | Encounter Summary ---
Author Organization [facility] Address [address] [place] [address] Care Team Providers Care Insight Leader Name Role Phone Amanda Myles DO Primary Care Provider [phone]- [phone] Carina Chaudhary MD Unavailable Khurram Soria MD Unavailable [phone] Josue Thornton DO Unavailable Silva Yao Unavailable [phone] Rosemarie Cuenca MA Unavailable [phone] Polina Angel NP Unavailable [phone] Encounter Details Date Type Department Care Team (Late st Contact Info) Description 07/29/2020 Telephone [facility] MRI Department [address] [place] [phone] [facility], [place], [place] Social History Tobacco Use Types Packs/Day Years Used Date Smoking Tobacco: Never Smokeless Tobacco: Never Alcohol Use Standard Drinks/Week Comments No 0 (1 standard drink = 0.6 oz pur e alcohol) PHQ-2 Answer Date Recorded PHQ-2 Total Score (If total score is 3 or more points, staff should administer the PHQ-9) 0 06/20/2020 Comments No Sex and Gender Information Value Date Recorded Sex Assigned at Not on file Legal Sex Female 4:19 AM NITRIC ACID PLANT OPERATOR Gender Identity Female 03/25/2020 1:09 PM NITRIC ACID PLANT OPERATOR Sexual Orientation Straight 03/25/2020 1: 09 PM NITRIC ACID PLANT OPERATOR documented as of this encounter Plan of Treatment Not on file documented as of this encounter Visit Diagnoses Not on filedocumented in this encounter Additional Health Concerns Infection Onset Date Last Indicated Resolved Time COVID: Suspected 03/10/2021 03/10/2021 03/10/2021 9:42 AM NITRIC ACID PLANT OPERATOR Influenza, adult 03/10/2021 03/10/2021 03/17/2021 3:05 AM NITRIC ACID PLANT OPERATOR COVID: Suspected 10/18/2021 10/18/2021 10/18/2021 4:25 PM CDT COVID19 10/18/2021 10/18/2021 10/28/2021 3:05 AM CDT COVID: Recovered Comment:Added based on recent COVID infection. 10/28/2021 11/03/2021 02/25/2022 3:[address] COVID: Suspected 01/03/2022 01/03/2022 01/03/2022 8:41 PM CDT COVID: Suspected 05/02/2022 05/02/2022 05/02/2022 2:16 PM NITRIC ACID PLANT OPERATOR Exposure, COVID-19 Comment:Added automatically based on COVID19 [...] COVID: Suspected 04/13/2024 04/13/2024 04/14/2024 3:05 AM NITRIC ACID PLANT OPERATOR COVID: Suspected 11/23/2024 11/23/2024 11/23/2024 2:47 PM CDT documented as of this encounter Care Teams Insight Leader Relationship Specialty Start Date End Date Shar Amanda McqueenDO [address] [facility] [address] [place] [address] PCP - General Family Medicine 11/16/19 Carina Chaudhary MD [address] [facility] [address] [place] [address] Surgeon Orthopedic Surgery 02/17/20 Khurram Soria MD [address] [facility] [address] [place], [place] [address] Referring Physician Obstetrics and Gynecology 02/17/20 09/02/22 Josue Thornton DO [address] [place] [address] Referring Physician Internal Medicine 10/31/20 Silva Yao PA [address] [place] [address] Physician Auto Machinist Orthopedic Surgery 10/31/20 Rosemarie Cuenca MA [address] [place] [address] [address] [place] [address] ACO Care Tools And Parts Attendant 05/03/22 05/06/22 Polina Angel, JUNIOR [address] [facility] [address] Jackson [address] [address] Nurse Practitioner Obstetrics and Gynecology 09/03/22 documented as of this encounter
[2024-12-13 13:01] VITALS: BP 127/72; PULSE 97; RESP 17; TEMP 36.6; O2SAT 99
--- OUTSIDE RECORDS SUMMARY | 2024-12-13 14:33 | XMS_ITS | Clinical Summary ---
Author Organization [facility] Address [address] [facility] [place] [address] Care Team Providers Care Child Nutrition Assistant Name Role Phone Amanda Myles DO Primary Care Provider [phone] Source Comments [facility],non-owned Affiliates and Associated Physician Practices is amultiple site organization consisting of ambulatory clinics and hospital sitesin [place], [place], [place] and [place]. This disclosure is being madepursuant to the Care Everywhere program and may not contain all information available regarding this patient. Last updated 18.[facility] Allergies Active Allergy Reactions Criticality Noted Date Comments Doxycycline Vomiting 12/05/2021 Medications * Be aware that medications may not be up to date on this document. Alwaysverify current medications with the patient. HYDROcodone-acet aminophen ([place]) 5-325 MG tablet Take 1 (one) tablet [...] on file Legal Sex Female 5:31 AM FENCE ERECTOR Gender Identity Not on file Sexual Orientation [...] complete this topic Insurance [employer]M Care Teams Child Nutrition Assistant Relationship Specialty Start Date End Date Amanda Myles DO [address] [place] [address] [address] [place] [address] PCP - General Family Medicine 12/05/21
--- OUTSIDE RECORDS SUMMARY | 2024-12-13 14:33 | XMS_ITS | Encounter Summary ---
Author Organization [facility] Healthcare Address [address] [place] [address] Care Team Providers Care Tester Waste Disposal Leakage Name Role Phone Amanda Myles DO Primary Care Provider [phone] Carina Chaudhary MD Unavailable [phone] Khurram Soria MD Unavailable [phone] Josue Thornton DO Unavailable Silva Yao Unavailable [phone] Rosemarie Cuenca MA Unavailable [phone] Polina Angel NP Unavailable [phone] Reason for Visit * Reason Onset Date Comments Med Refill 11/18/2020 Encounter Details Date Type Department Care Team (Late st Contact Info) Description 11/18/2020 Telephone [facility] [address] [facility] [address] [place] [address] Deidra Portillo MD [address] [place], [place] [id number] Med Refill Social History Tobacco Use Types [...] on file Legal Sex Female 4:19 AM ASSOCIATE DATA SCIENTIST Gender Identity Female 03/25/2020 1:09 PM ASSOCIATE DATA SCIENTIST Sexual Orientation Straight 03/25/2020 1: 09 PM ASSOCIATE DATA SCIENTIST documented as of this encounter Plan of [...] COVID: Suspected 03/10/2021 03/10/2021 03/10/2021 9:42 AM ASSOCIATE DATA SCIENTIST Influenza, adult 03/10/2021 03/10/2021 03/17/2021 3:05 AM ASSOCIATE DATA SCIENTIST COVID: Suspected 10/18/2021 10/18/2021 10/18/2021 4:25 PM CDT COVID19 10/18/2021 10/18/2021 10/28/2021 3:05 AM CDT COVID: Recovered Comment:Added based on recent COVID infection. 10/28/2021 11/03/2021 02/25/2022 3:[address] COVID: Suspected 01/03/2022 01/03/2022 01/03/2022 8:41 PM CDT COVID: Suspected 05/02/2022 05/02/2022 05/02/2022 2:16 PM ASSOCIATE DATA SCIENTIST Exposure, COVID-19 Comment:Added automatically based on COVID19 [...] COVID: Suspected 04/13/2024 04/13/2024 04/14/2024 3:05 AM ASSOCIATE DATA SCIENTIST COVID: Suspected 11/23/2024 11/23/2024 11/23/2024 2:47 PM CDT documented as of this encounter Care Teams Tester Waste Disposal Leakage Relationship Specialty Start Date End Date Amanda Myles DO [address] [facility] [address] [place] [address] PCP - General Family Medicine 11/16/19 Carina Chaudhary MD [address] [facility] [address] [place] [address] Surgeon Orthopedic Surgery 02/17/20 Khurram Soria MD [address] [address] Referring Physician Obstetrics and Gynecology 02/17/20 09/02/22 Josue Thornton DO [address] [place] [address] Referring Physician Internal Medicine 10/31/20 Silva Yao PA [address] [place] [address] Physician Steel Analyst Orthopedic Surgery 10/31/20 Rosemarie Cuenca, SHAKIRA [address] [place] [address] [address] [place] [address] ACO Care Corridor Redevelopment Manager 05/03/22 05/06/22 Polina Angel NP [address] [facility] [address] Jackson [address] [address] Nurse Practitioner Obstetrics and Gynecology 09/03/22 documented as of this encounter
--- OUTSIDE RECORDS SUMMARY | 2024-12-13 14:33 | XMS_ITS | Clinical Summary ---
Author Organization [address] [facility] [place] Address [address] [place] [phone] Care Team Providers Care Customs Patrol Officer Name Role Phone Shar Amanda Mcqueen DO Primary Care Provider [phone] Carina Chaudhary MD Unavailable Josue Thornton DO Unavailable Silva Yao Unavailable [phone] Polina Angel NP Unavailable [phone] Allergies Active Allergy Reactions Criticality Noted Date Comments Adhesive Rash High 02/17/2020 Doxycycline Nausea & Vomiting Low 03/10/2021 Medications etonogestreL (NEXPLANON) 68 mg implantIndicatio ns: Contraception 1 each (68 mg total) Paid by Insurance Lot # [id number] Exp. 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 Continue Pevely thyroid. Assessment & Plan (09/28/2022 2:46 PM CDT): Diagnosed around 2018 Patient is clinically euthyroid TSH was low at 0.13 on 09/03/22 Pevely thyroid was decreased from 120 to 90 mg/day Plan: Continue same dose of Pevely thyroid Check TSH in 6 weeks I will adjust the dose based on lab results. Bright red rectal bleeding 03/07/2022 Overview (03/07/2022): Added automatically from request for surgery [id number] Assessment & Plan (11/09/2024 8:50 AM CDT): [...] May also add Colace, which is also [id number]. Please follow instructions on the packaging. Keep [...] medications. Assessment & Plan (03/29/2023 12:34 PM DENTAL HYGIENIST MOBILE COORDINATOR): Clinically improved, continue current prescription medications, escitalopram. Assessment & Plan (09/03/2022 3:54 PM CDT): Clinically improved, continue current prescription medications, Lexapro. Assessment & Plan (03/31/2022 10:00 PM DENTAL HYGIENIST MOBILE COORDINATOR): Stable. Cont. Current prescription medications. Assessment & Plan (09/05/2021 11:11 AM CDT): New start on Lexapro. Referred to psychiatry for further evaluation and management. Attention deficit hyperactivity disorder (ADHD) 10/31/2020 Assessment & Plan (11/09/2024 8:49 AM CDT): Stable. Cont. Current prescription medications, Adderall XR. Assessment & Plan (04/13/2024 11:15 AM DENTAL HYGIENIST MOBILE COORDINATOR): Clinically improved, decreased Adderall 10 mg b.i.d. down to 10 mg daily. Assessment & Plan (12/19/2023 9:29 AM CDT): Stable. Cont. Current prescription medications. Assessment & Plan (03/29/2023 12:34 PM DENTAL HYGIENIST MOBILE COORDINATOR): Stable. Cont. Current prescription medications, Adderall. Assessment & Plan (09/03/2022 3:54 PM CDT): Stable. Cont. Current prescription medications, Adderall. Assessment & Plan (03/31/2022 10:00 PM DENTAL HYGIENIST MOBILE COORDINATOR): Increase Adderall XR 15 mg every day [...] management. Assessment & Plan (06/22/2021 9:26 AM DENTAL HYGIENIST MOBILE COORDINATOR): Clinically improved, continue current prescription medications. Assessment & Plan (04/04/2021 4:30 PM DENTAL HYGIENIST MOBILE COORDINATOR): Worsening. Increase Adderall XR 5 mg once [...] EGD. Assessment & Plan (02/17/2020 12:15 PM DENTAL HYGIENIST MOBILE COORDINATOR): Encouraged patient to use MiraLax on a [...] CDT): Asymptomatic. Stable. Continue current prescription medications, RETURNED CASE INSPECTOR Thyroid. Referred to Endocrinology for further eval/mgmt. Rash 09/03/2022 03/29/2023 Assessment & Plan (09/03/2022 4:00 PM CDT): Referred to dermatology for further eval/mgmt. Abdominal pain, generalized 03/07/2022 09/03/2022 Overview (03/07/2022): Added automatically from request for surgery [id number] Inversion sprain of right ankle 06/20/2020 10/31/2020 Assessment & Plan (06/20/2020 9:32 AM DENTAL HYGIENIST MOBILE COORDINATOR): Managed by Orthopedics. In right ankle boot. Has upcoming appointment with neurology for an apparent footdrop of the right foot. Abdominal bloating 03/25/2020 Flu vaccine need 02/17/2020 06/20/2020 Abnormal weight gain 02/17/2020 03 021 Assessment & Plan (02/17/2020 12:16 PM DENTAL HYGIENIST MOBILE COORDINATOR): Chronic constipation and use of control may be contributing. Continue to modify diet and participate in daily exercise. Abdominal pain, generalized 02/17/2020 06/20/2020 Assessment & Plan (02/17/2020 12:15 PM DENTAL HYGIENIST MOBILE COORDINATOR): Chronic, most likely secondary to constipation. However [...] 06/20/2020 Assessment & Plan (02/17/2020 12:16 PM DENTAL HYGIENIST MOBILE COORDINATOR): Referred to light armored vehicle officer for further evaluation and management. Constipation 02/17/2020 06/20/2020 Assessment & Plan (02/17/2020 12:16 PM DENTAL HYGIENIST MOBILE COORDINATOR): Trial of MiraLax. If no improvement consider referral to fine arts teacher. Encounters Date Type Department Care Team Description 12/13/2024 12:45 PM CDT Office Visit [facility] Care at [address] [address] Teagan Otero NP Acute left eye pain (Primary Dx); Vision changes; Photophobia 12/08/2024 10:00 AM CDT Office Visit [facility] at [address] [phone] Acosta Guthrie MD Class 1 obesity due to excess calories without serious comorbidity with body mass index (BMI) of 33.0 to 33.9 in adult (Primary Dx) 12/08/2024 Telephone [facility] at [address] [phone] Acosta Guthrie MD PA for wegovy 12/04/2024 10:15 AM CDT Office Visit [facility] Care at [address] [phone] Modesta Zaidi, JUNIOR Non-recurrent acute serous otitis media of right ear (Primary Dx); Episodic cluster headache, not intractable 11/25/2024 9:00 AM CDT Office Visit [facility] Care at [address] [phone] Audrey Stokes, JUNIOR Acute suppurative otitis media of right ear without spontaneous rupture of tympanic membrane, recurrence not specified (Primary Dx); Acute pansinusitis, recurrence not specified; Acute cough 11/24/2024 Results Follow-Up [facility] at [facility] [address] [facility] [address] [place] [address] Amanda Myles DO Throat culture Throat 11/23/2024 4:33 PM CDT - 11/23/2024 11:59 PM CDT Hospital Encounter [facility] [address] [place] [address] Sore throat Discharge Disposition: Discharge to home or self care 11/23/2024 2:30 PM CDT Office Visit [facility] at [facility] [address] [facility] [address] [place] [address] Amanda Myles DO Acute cough (Primary Dx); Sore throat; Aphthous ulcer of mouth; Non-seasonal allergic rhinitis, unspecified trigger 11/04/2024 Telephone [facility] at [place] [address] [facility] [address] [place] [address] Acosta Guthrie MD 11/02/2024 3:45 PM CDT Office Visit [facility] at [facility] [address] [facility] [address] [place] [address] Amanda Myles DO Attention deficit hyperactivity disorder (ADHD), unspecified ADHD type (Primary Dx); Chronic nausea; Bright red rectal bleeding; Class 1 obesity due to excess calories without serious comorbidity with body mass index (BMI) of 32.0 to 32.9 in adult 09/14/2024 11:30 AM CDT Office Visit [facility] at [address] [phone] Modesta Zaidi, JUNIOR Hand injury, [...] on file Legal Sex Female 4:19 AM DENTAL HYGIENIST MOBILE COORDINATOR Gender Identity Female 03/25/2020 1:09 PM DENTAL HYGIENIST MOBILE COORDINATOR Sexual Orientation Straight 03/25/2020 1: 09 PM DENTAL HYGIENIST MOBILE COORDINATOR Obstetrics History Para Term AB IAB SAB [...] HEPATITIS C ANTIBODY Routine 04/13/2024 11:13 AM DENTAL HYGIENIST MOBILE COORDINATOR Need for hepatitis C screening test HM [...] LES Final Result [facility] [address] [facility] [address] [place] [address] * POCT rapid strep A (11/23/2024 2:39 PM CDT) [facility] Rapid Strep A, POC Negative Negative Swab 11/23/2024 2:39 PM CDT us Amanda Myles DO POINT OF CARE TEST ORDERAB LES Final Result * Throat culture Throat (11/23/2024 2:39 PM CDT) Pathologist [facility] Report Final Report: No growth of pathogens. Comment:Testing performed by : [facility], [address] [facility] [place] [address] Throat 11/23/2024 2:39 PM CDT 11/23/2024 8:31 PM CDT Narrative BECCA - 11/24/2024 4:02 PM CDT Testing performed by [facility] Microbiology Laboratory ([phone]). us Amanda Myles DO LAB MICROBIOLOGY - GENERAL ORDERABLES Final Result Performing Organization Address City/[facility] Co de Phone Number BECCA [address] [facility] Department [place] [address] * Hepatitis C antibody Blood (04/13/2024 11:13 AM DENTAL HYGIENIST MOBILE COORDINATOR) [facility] Hep C Ab Nonreactive Nonreactive Comment: Antibodies [...] on 2019. Blood 04/13/2024 11:1 3 AM DENTAL HYGIENIST MOBILE COORDINATOR 04/13/2024 11:35 AM DENTAL HYGIENIST MOBILE COORDINATOR Amanda Myles DO LAB MICROBIOLOGY - GENERAL ORDERABLES Final Result [facility] [address] [facility] Department [place] [address] * CHLAMYDIA AND GONORRHEA (11/03/2021) SCRIBED GC/Chlamydia Urine Normal Historical Provider MD HEALTH MAINTENANCE Final Result from Last 3 Months or Most Recently Relevant to Health Maintenance Insurance Utel OOS Member Subscriber Plan / Payer (Ef fective 2018-Present) Name:Ann Price Kristel Relation to Subscriber:Child Name:JULIETA PRICE Date of :1967 (Home) Address: [address] [place] [id number] Payer ID:[id number] (NAIC) Type:Gigathlete Address: [address] ACCESS SPECIAL CONTRACTS PAYOR RAJ WIGGINS [id number] ANTHEM ACCESS Advance Directives For more information, please contact: [phone] Documents on File Type Date Recorded Patient Wig Comber Expl anation Advance Directives and Livin g Will 03/19/2022 1:14 PM * Full Code (Latest Code Status on File) Date Activated Date Inactivated Comments 01/17/2022 11:29 PM 01/18/2022 5:46 PM Care Teams Customs Patrol Officer Relationship Specialty Start Date End Date Eva Mylese DO [place] [address] [facility] [address] [place] [address] PCP - General Family Medicine 11/16/19 aCrina Chaudhary MD [address] [facility] [address] [place] [address] Surgeon Orthopedic Surgery 02/17/20 Josue Thornton DO [address] [place] [address] Referring Physician Internal Medicine 10/31/20 Silva Yao PA [address] [place] [address] Physician Cattle Manager Orthopedic Surgery 10/31/20 Polina Angel, RETURNED CASE INSPECTOR [address] [facility] [address] HETAL Jackson [address] [address] Nurse Practitioner Obstetrics and Gynecology 09/03/22
--- OUTSIDE RECORDS SUMMARY | 2024-12-13 14:33 | XMS_ITS | Encounter Summary ---
Author Organization [facility] Address [address] [place] [address] Care Team Providers Care Patent Drafter Name Role Phone Amanda Myles DO Primary Care Provider +- [phone] Carina Chaudhary MD Unavailable Khurram Soria MD Unavailable [phone] Josue Thornton DO Unavailable Silva Yao Unavailable [phone] Rosemarie Cuenca MA Unavailable [phone] Polina Angel NP Unavailable [phone] Encounter Details Date Type Department Care Team (Late st Contact Info) Description 07/29/2020 Telephone [facility] MRI Department [address] [place] [phone] [facility] [place] Social History Tobacco Use Types [...] on file Legal Sex Female 4:19 AM BOX TOE FLANGER STITCHDOWNS Gender Identity Female 03/25/2020 1:09 PM BOX TOE FLANGER STITCHDOWNS Sexual Orientation Straight 03/25/2020 1: 09 PM BOX TOE FLANGER STITCHDOWNS documented as of this encounter Plan of Treatment Not on file documented as of this encounter Visit Diagnoses Not on filedocumented in this encounter Additional Health Concerns Infection Onset Date Last Indicated Resolved Time COVID: Suspected 03/10/2021 03/10/2021 03/10/2021 9:42 AM BOX TOE FLANGER STITCHDOWNS Influenza, adult 03/10/2021 03/10/2021 03/17/2021 3:05 AM BOX TOE FLANGER STITCHDOWNS COVID: Suspected 10/18/2021 10/18/2021 10/18/2021 4:25 PM CDT COVID19 10/18/2021 10/18/2021 10/28/2021 3:05 AM CDT COVID: Recovered Comment:Added based on recent COVID infection. 10/28/2021 11/03/2021 02/25/2022 3:[address] COVID: Suspected 01/03/2022 01/03/2022 01/03/2022 8:41 PM CDT COVID: Suspected 05/02/2022 05/02/2022 05/02/2022 2:16 PM BOX TOE FLANGER STITCHDOWNS Exposure, COVID-19 Comment:Added automatically based on COVID19 [...] COVID: Suspected 04/13/2024 04/13/2024 04/14/2024 3:05 AM BOX TOE FLANGER STITCHDOWNS COVID: Suspected 11/23/2024 11/23/2024 11/23/2024 2:47 PM CDT documented as of this encounter Care Teams Patent Drafter Relationship Specialty Start Date End Date Shar Amanda McqueenDO [address] [facility] [address] [place] [address] PCP - General Family Medicine 11/16/19 Carina Chaudhary MD [address] [facility] [address] [place] [address] Surgeon Orthopedic Surgery 02/17/20 Khurram Soria MD [address] [facility] [address] [place], [place] [phone] Referring Physician Obstetrics and Gynecology 02/17/20 09/02/22 Josue Thornton DO [address] [place] [address] Referring Physician Internal Medicine 10/31/20 Silva Yao PA [address] [place] [address] Physician Construction Plumber Orthopedic Surgery 10/31/20 Rosemarie Cuenca MA [address] [place] [address] [address] [place] [address] ACO Care Project Planner 05/03/22 05/06/22 Polina Angel, JUNIOR [address] [facility] [address] HET[address] Jackson [address] [address] Nurse Practitioner Obstetrics and Gynecology 09/03/22 documented as of this encounter
--- OUTSIDE RECORDS SUMMARY | 2024-12-13 14:33 | XMS_ITS | Encounter Summary ---
Author Organization [facility] Address [address] [place] [address] Care Team Providers Care Assembly Machine Tool Setter Name Role Phone Amanda Myles DO Primary Care Provider +- [phone] Carina Chaudhary MD Unavailable Khurram Soria MD Unavailable [phone] Josue Thornton DO Unavailable Silva Yao Unavailable [phone] Rosemarie Cuenca MA Unavailable [phone] Polina Angel NP Unavailable [phone] Encounter Details Date Type Department Care Team (Late st [facility]) Description 03/28/2020 Telephone [facility] [place] Ultrasound Department [address] [place] [phone] Brandie Cooper, [place] Social History Tobacco [...] on file Legal Sex Female 4:19 AM STEEL ERECTOR APPRENTICE Gender Identity Female 03/25/2020 1:09 PM STEEL ERECTOR APPRENTICE Sexual Orientation Straight 03/25/2020 1: 09 PM STEEL ERECTOR APPRENTICE documented as of this encounter Plan of Treatment Not on file documented as of this encounter Visit Diagnoses Not on filedocumented in this encounter Additional Health Concerns Infection Onset Date Last Indicated Resolved Time COVID: Suspected 03/10/2021 03/10/2021 03/10/2021 9:42 AM STEEL ERECTOR APPRENTICE Influenza, adult 03/10/2021 03/10/2021 03/17/2021 3:05 AM STEEL ERECTOR APPRENTICE COVID: Suspected 10/18/2021 10/18/2021 10/18/2021 4:25 PM CDT COVID19 10/18/2021 10/18/2021 10/28/2021 3:05 AM CDT COVID: Recovered Comment:Added based on recent COVID infection. 10/28/2021 11/03/2021 02/25/2022 3:[address] COVID: Suspected 01/03/2022 01/03/2022 01/03/2022 8:41 PM CDT COVID: Suspected 05/02/2022 05/02/2022 05/02/2022 2:16 PM STEEL ERECTOR APPRENTICE Exposure, COVID-19 Comment:Added automatically based on COVID19 [...] COVID: Suspected 04/13/2024 04/13/2024 04/14/2024 3:05 AM STEEL ERECTOR APPRENTICE COVID: Suspected 11/23/2024 11/23/2024 11/23/2024 2:47 PM CDT documented as of this encounter Care Teams Assembly Machine Tool Setter Relationship Specialty Start Date End Date Shar Amanda McqueenDO [address] [facility] [address] [place] [address] PCP - General Family Medicine 11/16/19 Carina Chaudhary MD [address] [facility] [address] [place] [address] Surgeon Orthopedic Surgery 02/17/20 Khurram Soria MD [address] [facility] [address] [place], [place] [phone] Referring Physician Obstetrics and Gynecology 02/17/20 09/02/22 Josue Thornton DO [address] [place] [address] Referring Physician Internal Medicine 10/31/20 Sliva Yao PA [address] [place] [address] Physician Ammunition Storage Superintendent Orthopedic Surgery 10/31/20 Rosemarie Cuenca MA [address] [place] [address] [address] [place] [address] ACO Care Software Engineering Supervisor 05/03/22 05/06/22 Polina Angel, JUNIOR [address] [facility] [address] HETAL Jackson [address] [address] Nurse Practitioner Obstetrics and Gynecology 09/03/22 documented as of this encounter
--- OUTSIDE RECORDS SUMMARY | 2024-12-13 14:33 | XMS_ITS | Encounter Summary ---
Author Organization [facility] Address [address] [place] [address] Care Team Providers Care Goat Herder Name Role Phone Amanda Myles DO Primary Care Provider [phone] Carina Chaudhary MD Unavailable [phone] Josue Thornton DO Unavailable Silva Yao Unavailable [phone] Polina Angel NP Unavailable [phone] Encounter Details Date Type Department Care Team (Late st Contact Info) Description 11/24/2024 Results Follow-Up [facility] Family Medicine at [facility] [address] [place] [address] 260 [place] [address] Amanda Myles DO [address] [place] [address] [address] [place], [place] [phone] Throat culture Throat Social History Tobacco Use Types Packs/Day Years Used Date Smoking Tobacco: Never Smokeless Tobacco: Never Alcohol Use Standard Drinks/Week Comments Never 0 (1 standard drink = 0.6 oz pur e alcohol) PHQ-2 Answer Date Recorded PHQ-2 Total Score 0 11/02/2024 AUDIT-C Answer Date Recorded Q1: How often do you have a drink containing alcohol? Never 11/23/2024 Q2: How many drinks containi ng alcohol do you have on a typical day when you are drinking? Patient does not drink 5 Q3: How often do you have si x or more drinks on one occasion? Never 11/23/2024 Personal Safety Answer Date Recorded Getting School Help Needed Denies 03/28 Comments No Sex and Gender Information Value Date Recorded Sex Assigned at Not on file Legal Sex Female 4:19 AM COUNTER FORMER Gender Identity Female 03/25/2020 1:09 PM COUNTER FORMER Sexual Orientation Straight 03/25/2020 1: 09 PM COUNTER FORMER documented as of this encounter Plan of [...] Diagnoses Not on filedocumented in this encounter Care Teams Goat Herder Relationship Specialty Start Date End Date Amanda Myles DO [address] [facility] [address] [place] [address] PCP - General Family Medicine 11/16/19 Carina Chaudhary MD [address] [facility] [address] [place] [address] Surgeon Orthopedic Surgery 02/17/20 Josue Thornton DO [address] [place] [address] Referring Physician Internal Medicine 10/31/20 Silva Yao PA [address] [place] [address] Physician Drafting Detailer Orthopedic Surgery 10/31/20 Polina Angel, JUNIOR [address] [facility] [address] [address] Nurse Practitioner Obstetrics and Gynecology 09/03/22 documented as of this encounter
--- NOTE | 2024-12-13 14:35 | ED_ITS ---
HPI - Eye Problem General Chief complaint: Eye Problems Stated complaint: fb left eye Time Seen by Provider: 12/13/24 13:54 History of Present Illness HPI Narrative: Patient is a 24-year-old female who presents ER with pain to left eye. She was sleeping in her contacts woke up with pain in her eye and removed contact. She has tearing and sensitivity to light. She feels like something may be in [place]. Sclerae injected and itchy. She reports sinus congestion has been ongoing for a couple weeks. No fevers or chills. Related Data Home Medications ?Medication ?Instructions ?Recorded ?Confirmed ?Last Taken ?Type etonogestrel 68 mg subdermal 1 implant subdermal ONCE 05/18/19 05/18/19 Unknown History implant (Nexplanon) Allergies Allergy/AdvReac Type Severity Reaction Status Date / Time adhesive AdvReac Unknown Unknown Verified 12/13/24 13:04 Review of Systems Constitutional: Constitutional: Reports no additional constitutional complaints Eyes: Eyes: Reports no additional eye complaints ENT: Reports system reviewed and no additional complaints, except as documented [facility] Past Medical History Medical History (Updated 12/13/24 @ 14:42 by Branden Espinoza MD) Concussion Arachnoid cyst ADHD Family History Family History Mother Family history of thyroid disease Grandparent Depression Hypertension Social History Social History Smoking status: Never smoker Second hand tobacco smoke exposure: No Alcohol intake: never Substance use: never Occupation/Education: student Gender identity (if verbalized by the patient): Female Exam Narrative: GENERAL: Well-appearing, well-nourished, and in no acute distress. HEAD: Normocephalic, atraumatic. EYES: PERRL and EOMI. Left eye with scleral injection, tiny abrasion at 6:00 a.m. position. Lid eversion performed without foreign body. ENT: Mucous membranes moist. EXTREMITIES: Normal range of motion. No edema. SKIN: Warm, dry, no rash. NEURO: Alert and oriented x3. PSYCH: Normal mood and affect. Course Course Emergency Course: Patient resting comfortably. Discussed exam findings. She will wear glasses while she heals. Vital Signs Vital signs: Vital Signs Temperature 97.9 F 12/13/24 13:01 Pulse Rate 97 12/13/24 13:01 Respiratory Rate 17 12/13/24 13:01 Blood Pressure 127/72 12/13/24 13:01 Pulse Oximetry 99 12/13/24 13:01 Oxygen Delivery Room Air 12/13/24 13:01 Temperature 97.9 F 12/13/24 13:01 Pulse Rate 97 12/13/24 13:01 Respiratory Rate 17 12/13/24 13:01 Blood Pressure 127/72 12/13/24 13:01 Pulse Oximetry 99 12/13/24 13:01 Oxygen Delivery Room Air 12/13/24 13:01 Discharge Plan Discharge Clinical Impression: Corneal abrasion Patient Disposition: Home Condition: Stable Instructions: Antibiotic Form, Corneal Abrasion (ED) Additional Instructions: Go to an ER if you cannot see, you have increased pain, or have additional concerns. Patient Language: Uzbek Prescriptions: New tobramycin 0.3 % drops 1 - 2 drp LEFT EYE Q4H Qty: 5 0RF No Action Nexplanon 68 mg Implant 1 implant SUBDERMAL ONCE dextroamphetamine-amphetamine [Adderall XR] 10 mg capsule,extended release 24hr 10 mg PO DAILY Qty: 30 0RF Follow-up/Referrals: Shar,Amanda Angulo DO [Primary Care Provider, Unknown] - 1 Week
== END 2024-12-13 14:50 | disposition home or self-care (01) ==
PROVIDERS: Emergency Provider Emergency Medicine; PCP Family Medicine
DX: S05.02XA Injury of conjunctiva and corneal abrasion without foreign body, left eye, initial encounter (principal); X58.XXXA Exposure to other specified factors, initial encounter
CPT/HCPCS: 99283

== ENCOUNTER 2025-01-21 20:07 | Emergency (ER) | payer BC, SELFPAY ==
[2025-01-21] VITALS (7 sets, daily range): BP systolic 113–128; BP diastolic 72–90; PULSE 74–85; RESP 11–30; TEMP 36.4–36.8; O2SAT 99–100
--- NOTE | ~2025-01-21 | XR_ITS ---
Examination: XR chest 2V Clinical History: chest pain Comparison: None Technique: PA and Lateral Findings: Cardiomediastinal silhouette normal size and configuration. Lungs clear. No acute bony abnormality. IMPRESSION: 1. No acute cardiopulmonary findings. Reviewed, dictated and finalized at location R.
--- NOTE | 2025-01-21 21:02 | ECG_ITS ---
Test Date: 2025-01-21 21:07:07 Measurements Intervals Berger Rate: 74 P: 42 [place]: 163 QRS: 71 QRSD: 87 T: 41 QT: 365 QTc: 406 Interpretive Statements SINUS RHYTHM NORMAL ECG No previous ECG available for comparison Electronically Signed On 01-22-2025 06:20:21 CDT by Jovan Abdullahi D.O.
[2025-01-21 21:22] LABS: Hematocrit 39.6 % (37.0-47.0); Hemoglobin 13.4 g/dL (12.0-15.0); Immature Granulocyte Percent A 0.2 % (0-0.5); Lymphocytes Absolute Auto 3.34 K/mm3 (0.9-3.2); Mean Corpuscular HGB Conc 33.8 g/dl (32-36); Mean Corpuscular Hemoglobin 29.9 pg (26-34); Mean Corpuscular Volume 88.4 fl (80-100); Nucleated Red Blood Cells Absolute Auto 0.000 K/mm3 (0.0-0.012); Nucleated Red Blood Cells Perc 0.0 % (0.0-0.2); Platelet Count Result 226 k/mm3 (150-375); Red Blood Count 4.48 M/mm3 (4.2-5.4); White Blood Count 9.5 K/mm3 (4.5-10.0)
[2025-01-21 21:33] LABS: INR 1.1; Prothrombin Time 14.1 Seconds (11.1-14.7)
[2025-01-21 21:34] LABS: Partial Thromboplastin Time 35.2 Seconds (22.3-36.8)
[2025-01-21 21:35] LABS: Alanine Aminotransferase 11 U/L (6-35); Albumin Level 4.7 g/dL (3.5-5.1); Alkaline Phosphatase 54 U/L (38-126); Anion Gap 8 mmol/L (4-12); Aspartate Amino Transferase 30 U/L (14-36); Bilirubin,Total 0.3 mg/dL (0.2-1.3); Blood Urea Nitrogen 14 mg/dL (7-17); Calcium 9.0 mg/dL (8.4-10.2); Carbon Dioxide 27 mmol/L (22-30); Chloride 104 mmol/L (98-107); Estimated CRCL calculation 97 ml/min; Estimated Glomerular Filt Rate > 60; Glucose 85 mg/dL (65-110); Lipase 78 U/L (23-300); Potassium 4.0 mmol/L (3.4-5.0); Sodium 139 mmol/L (137-145); Total Protein 7.7 g/dL (6.3-8.2)
[2025-01-21 21:45] LABS: Troponin I < 0.012 ng/mL (0.000-0.034)
[2025-01-21] MEDS: ASPIRIN 81 MG CHEWABLE TABLET 324 MG PO (22:27)
--- NOTE | 2025-01-21 22:41 | ED_ITS ---
HPI - Arrhythmia/Palpitations General Chief Complaint: Chest Pain Stated Complaint: High Heart Rate/Chest Pain Time Seen by Provider: 01/21/25 22:33 Source: patient Mode of arrival: ambulatory Limitations: no limitations History of Present Illness HPI narrative: Patient is a 24-year-old female presents to the emergency department accompanied by her sister complaining of palpitations, chest pain. Patient notes over the past 1 week she has been noticing her heart rate gets high upwards of the 140s, was wearing an Apple watch today show this and also saw her doctor and could get below the 120s. Patient works at the [employer] and denies ever seeing a heart doctor or having any stress testing or wearing a Holter monitor. Patient denies any recent injuries or recent illness. Patient denies any fevers, vomiting, melena, hematochezia. 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 Patient denies any known history of abnormal heart rhythms. Patient she started have some chest discomfort around 5 p.m. today, middle of her chest, has ago heaviness pressure, not radiate, no history is in the past, denies any known history of blood clots, denies any lower extremity swelling. Patient does admit to being on control with a arm implant. Related Data Home Medications ?Medication ?Instructions ?Recorded ?Confirmed ?Last Taken ?Type etonogestrel 68 mg subdermal 1 implant subdermal ONCE 05/18/19 05/18/19 Unknown History implant (Nexplanon) Allergies Allergy/AdvReac Type Severity Reaction Status Date / Time adhesive AdvReac Unknown Unknown Verified 01/21/25 22:23 Review of Systems 2 Review of Systems: A 10 system review of systems was completed on the patient and is negative except for what is stated in the HPI. Nursing and ancillary documentation was reviewed. [facility] Past Medical History Medical History (Updated 01/22/25 @ 01:42 by Avi Moncada DO) Concussion Arachnoid cyst ADHD Family History Family History Mother Family history of thyroid disease Grandparent Depression Hypertension Social History Social History Smoking status: Never smoker Second hand tobacco smoke exposure: No Alcohol intake: never Substance use: never Occupation/Education: student Gender identity (if verbalized by the patient): Female Exam 2 Narrative: CONST: No acute distress. Well nourished. HENMT: Head is normocephalic and atraumatic. Moist mucous membranes. No posterior oropharynx erythema. EYES: No scleral icterus. No conjunctival injection or pallor. PERRL. NECK: No meningeal signs. RESP: Able to speak in full sentences. Normal respiratory effort. CTAB. CARDIO: Regular rate. Regular rhythm. 2+ DP and radial pulses bilaterally. GI: Nondistended. No tenderness to palpation. Soft. : No CVA tenderness to palpation. SKIN: No rashes or lesions noted on exposed skin. NEURO: Oriented x3. Moves all extremities. EXTREM/MSK/BACK: No pedal edema. PSYCH: Normal affect. Course Vital Signs Vital signs: Vital Signs Temperature 97.5 F L 01/21/25 20:58 Pulse Rate 85 01/21/25 20:58 Respiratory Rate 16 01/21/25 20:58 Blood Pressure 113/72 01/21/25 20:58 Pulse Oximetry 100 01/21/25 20:58 Oxygen Delivery Room Air 01/21/25 20:58 Temperature 98.3 F 01/21/25 22:20 Pulse Rate 80 01/21/25 22:23 Respiratory Rate 17 01/21/25 22:23 Blood Pressure 128/79 01/21/25 22:23 Pulse Oximetry 100 01/21/25 22:23 Oxygen Delivery Autopap 01/21/25 22:21 MDM - Arrhythmia/Palpitations MDM Narrative Medical decision making narrative: Patient presents with the above complaint. Initial vitals are remarkable for no significant abnormalities. Physical examination as noted above. Differential diagnosis includes was not limited to: ACS, pulmonary embolism, metabolic derangement, electrolyte derangement, thyroid dysfunction, dysrhythmia, dehydration, pots. Plan discussed: laboratory analysis, EKG, imaging. Patient ordered IVF, aspirin. EKG performed at 9:07 p.m. reveals a sinus rhythm, rate of 74, axis is normal, no ST elevations or depressions, nonspecific T-wave abnormality with a T wave inversion in V2, NE interval 163 milliseconds, QTC interval 406 milliseconds, QRS duration of 87 milliseconds, no previous EKG on file for comparison. Patient was reassessed at the bedside. No changes in physical exam. Patient is in no acute distress. The patient has remained stable throughout the entire ED visit. Counseled patient regarding diagnostic results and potential diagnosis. Anticipatory guidance provided. Patient instructed to follow up with PCP and cardiology in the next 2-3 days. Patient counseled on: false reassurance from an emergency department evaluation; no current evidence of a medical emergency; return immediately for any new, recurrent, worsening, concerning, or refractory symptoms. Medications discussed with patient. Additional verbal and printed discharge instructions were given and discussed with the patient. Patient verbally acknowledges understanding of condition and discharge instructions. All questions were answered to the patient's satisfaction. Patient is in agreement with the plan of care. The patient is stable for discharge and was discharged without incident. Medical Records Attestation: I reviewed the patient's medical records. Lab Data Attestation: I reviewed the patient's lab results. Lab results narrative: CBC is without any significant abnormalities. Coags are within normal limits. Comprehensive metabolic panel reveals no significant abnormalities. Troponin is less than 0.012. Lipase of 78. D-dimer is less than 0.27. Magnesium is 2.0. TSH is 0.082. Lipase 79. BNP is 45. Repeat troponin is less than 0.012. HCG testing is negative. 01/21/25 21:13 01/21/25 21:13 Labs: Lab Results 01/21/25 01/21/25 01/22/25 Range/Units 21:13 23:01 00:30 WBC 9.5 (4.5-10.0) K/mm3 RBC 4.48 (4.2-5.4) M/mm3 Hgb 13.4 (12.0-15.0) g/dL Hct 39.6 (37.0-47.0) % MCV 88.4 (80-100) fl MCH 29.9 (26-34) pg MCHC 33.8 (32-36) g/dl RDW 11.8 (11.5-14.5) % Plt Count 226 (150-375) k/mm3 MPV 10.6 H (7.4-10.4) fl Immature Gran % (Auto) 0.2 (0-0.5) % Neut % (Auto) 50.8 (45.5-73.1) % Lymph % (Auto) 35.3 (18.3-44.2) % [place] % (Auto) 8.9 H (2.6-8.5) % Eos % (Auto) 4.2 (0-4.4) % Baso % (Auto) 0.6 (0.2-1.2) % Lymph # (Auto) 3.34 H (0.9-3.2) K/mm3 [place] # (Auto) 0.8 H (0.1-0.6) K/mm3 Eos # (Auto) 0.4 H (0-0.3) K/mm3 Baso # (Auto) 0.1 (0.0-0.1) K/mm3 Abs Immat Gran (auto) 0.02 (0.00-0.031) K/mm3 Absolute Neuts (auto) 4.8 (1.3-6.7) K/mm3 Absolute Nucleated RBC 0.000 (0.0-0.012) K/mm3 Nucleated RBC % 0.0 (0.0-0.2) % PT 14.1 (11.1-14.7) Seconds INR 1.1 APTT 35.2 (22.3-36.8) Seconds D-Dimer < 0.27 (<0.48) ug/mL Sodium 139 (137-145) mmol/L Potassium 4.0 (3.4-5.0) mmol/L Chloride 104 (98-107) mmol/L Carbon Dioxide 27 (22-30) mmol/L Anion Gap 8 (4-12) mmol/L BUN 14 (7-17) mg/dL Creatinine 0.71 (0.7-1.0) mg/dL Estim Creat Clear Calc 97 ml/min Estimated GFR > 60 (59 - ) Glucose 85 (65-110) mg/dL Lactic Acid 1.2 (0.7-2.0) mmol/L Calcium 9.0 (8.4-10.2) mg/dL Magnesium 2.0 (1.6-2.3) mg/dL Total Bilirubin 0.3 (0.2-1.3) mg/dL AST 30 (14-36) U/L ALT 11 (6-35) U/L Alkaline Phosphatase 54 (38-126) U/L Troponin I < 0.012 < 0.012 (0.000-0.034) ng/mL NT-Pro-B Natriuret Pep 45 (19.9-100) pg/mL Total Protein 7.7 (6.3-8.2) g/dL Albumin 4.7 (3.5-5.1) g/dL Lipase 78 79 (23-300) U/L TSH (Reflex) 0.082 L (0.465-4.68) uIU/mL Free T4 0.87 (0.78-2.19) ng/dL Total T3 1.28 (0.82-1.58) NG/ML POC Urine HCG, Qual (Negative) Urine Test 01/22/25 01/22/25 Range/Units 00:44 00:46 WBC (4.5-10.0) K/mm3 RBC (4.2-5.4) M/mm3 Hgb (12.0-15.0) g/dL Hct (37.0-47.0) % MCV (80-100) fl MCH (26-34) pg MCHC (32-36) g/dl RDW (11.5-14.5) % Plt Count (150-375) k/mm3 MPV (7.4-10.4) fl Immature Gran % (Auto) (0-0.5) % Neut % (Auto) (45.5-73.1) % Lymph % (Auto) (18.3-44.2) % [place] % (Auto) (2.6-8.5) % Eos % (Auto) (0-4.4) % Baso % (Auto) (0.2-1.2) % Lymph # (Auto) (0.9-3.2) K/mm3 [place] # (Auto) (0.1-0.6) K/mm3 Eos # (Auto) (0-0.3) K/mm3 Baso # (Auto) (0.0-0.1) K/mm3 Abs Immat Gran (auto) (0.00-0.031) K/mm3 Absolute Neuts (auto) (1.3-6.7) K/mm3 Absolute Nucleated RBC (0.0-0.012) K/mm3 Nucleated RBC % (0.0-0.2) % PT (11.1-14.7) Seconds INR APTT (22.3-36.8) Seconds D-Dimer (<0.48) ug/mL Sodium (137-145) mmol/L Potassium (3.4-5.0) mmol/L Chloride (98-107) mmol/L Carbon Dioxide (22-30) mmol/L Anion Gap (4-12) mmol/L BUN (7-17) mg/dL Creatinine (0.7-1.0) mg/dL Estim Creat Clear Calc ml/min Estimated GFR (59 - ) Glucose (65-110) mg/dL Lactic Acid (0.7-2.0) mmol/L Calcium (8.4-10.2) mg/dL Magnesium (1.6-2.3) mg/dL Total Bilirubin (0.2-1.3) mg/dL AST (14-36) U/L ALT (6-35) U/L Alkaline Phosphatase (38-126) U/L Troponin I (0.000-0.034) ng/mL NT-Pro-B Natriuret Pep (19.9-100) pg/mL Total Protein (6.3-8.2) g/dL Albumin (3.5-5.1) g/dL Lipase (23-300) U/L TSH (Reflex) (0.465-4.68) uIU/mL Free T4 (0.78-2.19) ng/dL Total T3 (0.82-1.58) NG/ML POC Urine HCG, Qual Negative (Negative) Urine Test Negative Imaging Data Attestation: I personally reviewed and interpreted this imaging study as follows: My impression: No acute cardiopulmonary process. Discharge Plan Discharge Clinical Impression: Palpitations Chest pain Qualifiers: Chest pain type: unspecified Qualified Code(s): R07.9 - Chest pain, unspecified Patient Disposition: Home Condition: Stable Instructions: Antibiotic Form, Chest Pain (ED), Heart Palpitations (ED) Additional Instructions: Follow-up with your primary care physician and Cardiology in the next 2-3 days for reassessment as he would likely benefit further outpatient workup such as stress testing, Holter monitor, amongst other interventions. Continue taking your home medications as prescribed. Rest and stay well-hydrated. Return immediately to the emergency department for any new or concerning symptoms especially any emergent concerns for life, limb, eyesight. Patient Language: French Prescriptions: No Action Nexplanon 68 mg Implant 1 implant SUBDERMAL ONCE tobramycin 0.3 % drops 1 - 2 drp LEFT EYE Q4H Qty: 5 0RF dextroamphetamine-amphetamine [Adderall XR] 10 mg capsule,extended release 24hr 10 mg PO DAILY Qty: 30 0RF Follow-up/Referrals: Shar,Amanda Angulo DO [Primary Care Provider, Unknown] - 2 Days Donya Jimenez DO [Physician, Cardiology] - 2 Days Time of Disposition: 01:42
[2025-01-21 23:01] LABS: Magnesium 2.0 mg/dL (1.6-2.3)
[2025-01-21 23:10] LABS: NT Pro B Type Natriuretic Pept 45 pg/mL (19.9-100)
[2025-01-21] MEDS: SODIUM CHLORIDE 0.9% IV 1,000 ML 999 ML IV CONT (23:20)
[2025-01-21 23:27] LABS: Lipase 79 U/L (23-300)
[2025-01-21 23:34] LABS: Thyroid Stimulating Hormone Reflex 0.082 uIU/mL (0.465-4.68)
[2025-01-22] VITALS (8 sets, daily range): BP systolic 107; BP diastolic 72; PULSE 71–84; RESP 15–22; TEMP 36.9; O2SAT 98–100
[2025-01-22 00:06] LABS: Free T4 Free Thyroxine Reflex 0.87 ng/dL (0.78-2.19)
--- NOTE | 2025-01-22 00:39 | ECG_ITS ---
Test Date: 2025-01-22 00:48:33 Measurements Intervals [place] Rate: 72 P: 46 DE: 178 QRS: 61 QRSD: 89 T: 28 QT: 373 QTc: 410 Interpretive Statements SINUS RHYTHM WITH SINUS ARRHYTHMIA NORMAL ECG Compared to ECG 01/21/2025 21:07:07 No significant changes Electronically Signed On 01-22-2025 06:26:01 CDT by Jovan Abdullahi D.O.
[2025-01-22 00:48] LABS: BEDSIDEPREGUCG Negative (Negative)
[2025-01-22 00:50] LABS: Total Triiodothyronine (T3) 1.28 NG/ML (0.82-1.58)
[2025-01-22 00:59] LABS: Pregnancy On Board Control Positive
[2025-01-22 01:04] LABS: Troponin I < 0.012 ng/mL (0.000-0.034)
== END 2025-01-22 01:54 | disposition home or self-care (01) ==
PROVIDERS: Student in an Organized Health Care Education/Training Program; Emergency Provider Student in an Organized Health Care Education/Training Program; PCP Family Medicine
DX: R00.2 Palpitations (principal); R07.9 Chest pain, unspecified; E06.3 Autoimmune thyroiditis; F90.9 Attention-deficit hyperactivity disorder, unspecified type; Z79.899 Other long term (current) drug therapy
CPT/HCPCS: 36415; 71046; 80053; 81025; 83605; 83690; 83735; 83880; 84439; 84443; 84480; 84484; 85025; 85380; 85610; 85730; 93005; 96360; 99284; A9270; J7030